=== PATIENT | male | born 1990 | race Caucasian/White ===

== ENCOUNTER 2016-10-15 17:40 | Emergency (ER) | payer OTHER ==
[2016-10-15] MEDS ORDERED: NICOTINE 21 MG/24 HR PATCH TD ONE (18:16)
[2016-10-15 18:21] LABS: % IMMATURE GRANULYOCYTES 0.2 % (0.0-1.1); ABSOLUTE IMMATURE GRANULOCYTES 0.03 10^3/uL (0.00-0.10); ADD DIFF? NO; ADD MORPH? NO; ADD SCAN? NO; ATYPICAL LYMPHOCYTE FLAG 0 (0-99); FRAGMENT RBC FLAG 0 (0-99); HEMATOCRIT 43.7 % (40.0-51.0); HEMOGLOBIN 14.7 g/dL (13.7-17.5); LEFT SHIFT FLG 0 (0-99); LIPEMIA HEMOLYSIS FLAG 80 (0-99); MEAN CELL HEMOGLOBIN 30.8 pg (27.9-34.1); MEAN CELL HEMOGLOBIN CONCENTR. 33.6 g/dL (32.4-36.7); MEAN CELL VOLUME 91.4 fL (81.5-99.8); MEAN PLATELET VOLUME 10.7 fL (8.7-11.7); PLATELET CLUMPS FLAG 0 (0-99); PLATELET COUNT 273 10^3/uL (150-400); RED BLOOD CELL COUNT 4.78 10^6/uL (4.40-6.38); RED CELL DISTRIBUTION WIDTH 12.4 % (11.5-15.2)
[2016-10-15 18:35] LABS: ANION GAP 14 mEq/L (8-16); CALCIUM 10.6 mg/dL (8.5-10.4); CARBON DIOXIDE 25 mEq/l (22-31); CHLORIDE 100 mEq/L (97-110); ETHANOL SERUM < 10 mg/dL (0-10); GLOMERULAR FILTRATION RATE > 60; GLUCOSE 118 mg/dL (70-100); POTASSIUM 4.1 mEq/L (3.5-5.2); SODIUM 139 mEq/L (134-144)
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
[2016-10-15] MEDS ORDERED: LORazepam 1 MG TAB PO ONE (19:02)
[2016-10-15] MEDS ORDERED: OLANZapine 10 MG/2 ML VIAL IM ONE (19:33)
[2016-10-15 20:16] LABS: LITHIUM 0.9 mEq/L (0.6-1.2)
[2016-10-15] MEDS ORDERED: OLANZapine DISINTEGR 10 MG TAB ONE (22:00)
[2016-10-15] MEDS ORDERED: LORazepam 1 MG TAB ONE (22:00)
[2016-10-16] MEDS ORDERED: OLANZapine DISINTEGR 10 MG TAB PO ONE (00:01)
[2016-10-16] MEDS ORDERED: LORazepam 2 MG/ML INJ ONE (00:29)
[2016-10-16] MEDS ORDERED: LORazepam 1 MG TAB PO ONE ×3 (00:30→21:06)
[2016-10-16] MEDS ORDERED: LORazepam 2 MG/ML INJ IM ONE (01:09)
[2016-10-16] MEDS: LITHIUM CARBONATE 300 MG TAB PO SCH ×4 (02:00→21:26)
[2016-10-16] MEDS ORDERED: OLANZapine 10 MG/2 ML VIAL IM ONE ×3 (07:33→13:58)
[2016-10-16] MEDS ORDERED: LORazepam 1 MG TAB ONE (10:44)
[2016-10-16] MEDS ORDERED: diphenhydrAMINE 50 MG CAP PO ONE (16:14)
[2016-10-16] MEDS ORDERED: diphenhydrAMINE 25 MG CAP PO ONE ×2 (17:18→23:01)
[2016-10-16] MEDS ORDERED: NICOTINE 21 MG/24 HR PATCH TD ONE (19:54)
[2016-10-17] MEDS ORDERED: OLANZapine 10 MG TAB PO ONE (02:24)
[2016-10-17] MEDS ORDERED: OLANZapine DISINTEGR 10 MG TAB ONE (02:26)
[2016-10-17] MEDS ORDERED: OLANZapine DISINTEGR 10 MG TAB PO ONE (02:27)
[2016-10-17] MEDS ORDERED: LORazepam 1 MG TAB PO ONE ×3 (03:37→13:40)
[2016-10-17] MEDS: LITHIUM CARBONATE 300 MG TAB PO SCH ×2 (08:00→18:47)
[2016-10-17] MEDS ORDERED: OLANZapine 5 MG TAB PO ONE (08:10)
[2016-10-17] MEDS ORDERED: diphenhydrAMINE 25 MG CAP PO ONE ×2 (08:46→09:45)
[2016-10-17] MEDS ORDERED: LORazepam 1 MG TAB ONE ×2 (10:55→13:37)
[2016-10-17] MEDS ORDERED: HALOPERIDOL LACT 5 MG/ML INJ ONE ×2 (14:48→21:57)
[2016-10-17] MEDS ORDERED: HALOPERIDOL LACT 5 MG/ML INJ IM ONE ×2 (14:52→22:30)
[2016-10-17 17:06] VITALS: BP 120/78; PULSE 80; RESP 14; TEMP 98.4; O2SAT 96
[2016-10-17] MEDS ORDERED: OLANZapine 10 MG/2 ML VIAL IM ONE (18:17)
[2016-10-17] MEDS ORDERED: QUEtiapine FUMARATE 200 MG TAB PO ONE (20:19)
[2016-10-18] MEDS ORDERED: diphenhydrAMINE 50 MG CAP PO ONE (01:11)
[2016-10-18] MEDS ORDERED: LORazepam 1 MG TAB ONE (01:11)
[2016-10-18] MEDS ORDERED: LORazepam 1 MG TAB PO ONE ×2 (01:16→08:24)
[2016-10-18] MEDS ORDERED: diphenhydrAMINE 25 MG CAP PO ONE (01:16)
[2016-10-18] MEDS ORDERED: ZOLPIDEM TARTRATE 5 MG TAB PO ONE (04:10)
[2016-10-18 07:52] LABS: ALBUMIN 5.1 g/dL (3.5-5.0); BILIRUBIN-CONJUGATED 0.5 mg/dL (0.0-0.5); BILIRUBIN-UNCONJUGATED 0.5 mg/dL (0.0-1.1); TOTAL PROTEIN 8.2 g/dL (6.3-8.2)
[2016-10-18] MEDS ORDERED: OLANZapine 10 MG TAB PO ONE ×2 (08:24→12:04)
[2016-10-18] MEDS ORDERED: OLANZapine DISINTEGR 10 MG TAB ONE ×2 (08:25→12:07)
[2016-10-18 09:00] LABS: ANION GAP 12 mEq/L (8-16); CARBON DIOXIDE 23 mEq/l (22-31); CHLORIDE 109 mEq/L (97-110); CREATININE 0.9 mg/dL (0.7-1.3); GLOMERULAR FILTRATION RATE > 60; GLUCOSE 107 mg/dL (70-100); LITHIUM 1.3 mEq/L (0.6-1.2); SODIUM 144 mEq/L (134-144)
[2016-10-18 09:07] LABS: POTASSIUM 4.5 mEq/L (3.5-5.2)
[2016-10-18] MEDS: LITHIUM CARBONATE 300 MG TAB PO SCH (12:00)
[2016-10-18] MEDS ORDERED: OLANZapine 10 MG/2 ML VIAL IM ONE ×2 (14:31→14:32)
== END 2016-10-18 15:27 ==
DX: F29 Unspecified psychosis not due to a substance or known physiological condition (principal); F17.200 Nicotine dependence, unspecified, uncomplicated
CPT/HCPCS: 80305; G0480

== ENCOUNTER 2016-10-31 18:56 | Emergency (ER) | payer OTHER ==
--- NOTE | 2016-10-31 20:44 | EDPHY ---
H & P Stated Complaint: R ankle injury. HPI/ROS: Chief complaint: Right ankle pain History of present illness: This is a 25-year-old male who presents to the emergency department for right ankle pain. He reports he has had pain for the last few days to the back of his ankle. It is slowly worsening. He states it makes it difficult to move the ankle. He denies precipitating factors such as trauma. He has not felt anything pull or pop. No report of open wounds, no paresthesias or abnormal coolness. - Personal History Current Tetanus/Diphtheria Vaccine: Unsure Current Tetanus Diphtheria and Acellular Pertussis (TDAP): No Tetanus Vaccine Date: Pt reports he has had a tetanus within the last four years - Medical/Surgical History Hx Asthma: No Hx Chronic Respiratory Disease: No Hx Diabetes: No Hx Cardiac Disease: No Hx Renal Disease: No Hx Cirrhosis: No Hx Alcoholism: No Hx HIV/AIDS: No Hx Splenectomy or Spleen Trauma: No Other PMH: Bipolar. - Social History Smoking Status: Heavy smoker - Physical Exam Exam: General appearance: Alert, nontoxic Musculoskeletal: Tenderness to the posterior ankle including over the Achilles. No Achilles defect. The rest of the ankle is unremarkable. He is moving the ankle well. Foot, lower leg and knee unremarkable. Neurologic exam: The patient has normal sensation and motor function distal to the injury. Vascular exam: Normal pulses and capillary refill in the foot Constitutional: Initial Vital Signs Temperature (C) 36.7 C 10/31/16 19:00 Heart Rate 106 H 10/31/16 19:00 Respiratory Rate 16 10/31/16 19:00 O2 Sat (%) 97 10/31/16 19:00 O2 Delivery Mode Room Air Allergies/Adverse Reactions: amoxicillin [Amoxicillin] Allergy (Unknown, Verified 10/31/16 19:04) Home Medications: Medication Instructions Recorded [place] Carbonate ER [Lithobid] 900 mg PO HS 03/14/15 Lorazepam [Ativan] 1 mg PO TID PRN 03/15/15 Zyprexa 10/31/16 Medical Decision Making - Diagnostics Imaging: The x-ray series of the right ankle is unremarkable Procedures: Procedure: Splint placement. A cardona boot splint was applied. After application of the splint I returned and re-examined the patient. The splint was adequately immobilizing the joint and distal to the splint the patient's circulation and sensation was intact. ED Course/Re-evaluation: Patient seen under the supervision of my secondary supervising physician Dr. Bebe Schilling. Patient presents to the emergency department for right ankle pain. The foot is neurovascularly intact. The physical exam is unremarkable. X -ray is negative. He is placed in the Steven boot. Referred to Orthopedics for recheck. Return precautions are given. Patient voiced understanding and agreement with plan. Differential Diagnosis: Included but not limited to contusion, sprain or strain including Achilles tendon injury, tendonitis, bony fracture, unlikely septic joint Departure - Departure Disposition: Home, Routine, Self-Care Clinical Impression: Ankle pain Qualifiers: Laterality: right Chronicity: acute Qualified Code(s): M25.571 - Pain in right ankle and joints of right foot Condition: Good Instructions: Ankle Sprain (ED) Additional Instructions: Follow up with Orthopedics next week for continued evaluation and care If symptoms worsen or new symptoms develop return to the emergency room for recheck Referrals: NONE *PRIMARY CARE P,. [Primary Care Provider] - As per Instructions Knedell Padilla MD [Medical Doctor] - As per Instructions
[2016-10-31 21:16] VITALS: BP 122/72; PULSE 78; RESP 18; TEMP 98.2; O2SAT 96
== END 2016-10-31 21:15 | disposition home or self-care (01) ==
DX: M25.571 Pain in right ankle and joints of right foot (principal); F17.200 Nicotine dependence, unspecified, uncomplicated
CPT/HCPCS: L4386